=== PATIENT | male | born 1990 | race Caucasian/White ===

== ENCOUNTER 2022-08-27 09:31 | Emergency (ER) | payer SELFPAY ==
[2022-08-27] MEDS ORDERED: Ketorolac 30 MG/ML SDV IM ONE (09:59)
[2022-08-27] MEDS ORDERED: Take Home: predniSONE 20 MG, 4 Tab Pack PO ONE (10:03)
[2022-08-27] MEDS ORDERED: Take Home: Cyclobenzaprine 10 MG Tab, 4 Tab Pack PO ONE (10:03)
== END 2022-08-27 10:47 | disposition home or self-care (01) ==
LOC: LL.ED 09:31
DX: M54.50 Low back pain, unspecified (principal)
CPT/HCPCS: 72100; 96372; 99283; A9270-GY; J1885